=== PATIENT | female | born 1980 | race Caucasian/White ===

== ENCOUNTER → 2018-07-19 | Outpatient (CLI) | payer OTHER ==
--- NOTE | 2018-07-20 13:07 | XR ---
EXAMINATION TYPE: XR chest 2V DATE OF EXAM: 07/19/2018 COMPARISON: 10/14/2013 INDICATION: Acute bronchitis TECHNIQUE: Frontal and lateral views of the chest are obtained. FINDINGS: The heart size is normal. The pulmonary vasculature is normal. The lungs are clear. No peribronchial thickening is evident. No suspicious focal consolidations are evident. There is some mild increased left perihilar lung markings. Viral pneumonia could be consider ed. Bronchitis is within the differential. IMPRESSION: 1. Mild left perihilar increased lung markings. Viral pneumonia and acute bronchitis is within the di fferential.
== END | disposition home or self-care (01) ==
LOC: RADXRMAIN 16:30
PROVIDERS: ATTEND Nurse Practitioner Family
DX: J20.9 Acute bronchitis, unspecified (principal); J12.9 Viral pneumonia, unspecified
CPT/HCPCS: 71046